=== PATIENT | male | born 1995 | race Caucasian/White ===

== ENCOUNTER 2017-02-05 16:08 | Emergency (ER) | payer SELFPAY ==
[2017-02-05 16:30] VITALS: RESP 16
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
[2017-02-05] MEDS ORDERED: IBUPROFEN 800 MG TAB PO ONE (17:05)
[2017-02-05] MEDS ORDERED: OXYCODONE/APAP 5/325 TAB PO ONE (17:05)
[2017-02-05] MEDS ORDERED: ONDANSETRON DISINTEGRATING 4 MG TAB PO ONE (17:05)
[2017-02-05] MEDS ORDERED: IBUPROFEN 200 MG TAB PO ONE (17:35)
[2017-02-05 18:37] VITALS: BP 128/82; PULSE 94; TEMP 98.4; O2SAT 97
== END 2017-02-05 18:34 | disposition home or self-care (01) ==
DX: S09.90XA Unspecified injury of head, initial encounter (principal); F17.200 Nicotine dependence, unspecified, uncomplicated; W20.8XXA Other cause of strike by thrown, projected or falling object, initial encounter; Y99.8 Other external cause status; Y93.01 Activity, walking, marching and hiking